=== PATIENT | female | born 1965 | race Caucasian/White ===

== ENCOUNTER 2024-03-09 06:07 | Inpatient (IN) | payer MEDICAID, OTHER ==
[2024-03-09 07:24] LABS: BASOPHILS ABSOLUTE AUTO 0.03 K/uL (0.00-0.10); BASOPHILS PERCENT AUTO 0.5 % (0.1-1.3); EOSINOPHILS ABSOLUTE AUTO 0.03 K/uL (0.00-0.40); EOSINOPHILS PERCENT AUTO 0.5 % (0.0-5.4); HEMATOCRIT 31.7 % (34.3-46.0); HEMOGLOBIN 10.6 g/dL (11.2-15.5); IMMATURE GRAN PERCENT AUTO 0.3 % (0.0-0.7); LYMPHOCYTES ABSOLUTE AUTO 1.46 K/uL (0.8-3.3); LYMPHOCYTES PERCENT AUTO 22.7 % (11.4-47.7); MEAN CORPUSCULAR HEMOGLOBIN 30.9 pg (31.6-35.5); MEAN CORPUSCULAR HGB CONC 33.4 g/dL (31.6-35.5); MEAN CORPUSCULAR VOLUME 92.4 fL (81.4-99.0); MONOCYTES ABSOLUTE AUTO 0.52 K/uL (0.20-0.90); MONOCYTES PERCENT AUTO 8.1 % (3.3-12.6); NEUTROPHILS ABSOLUTE AUTO 4.38 K/uL (1.0-7.6); NEUTROPHILS PERCENT AUTO 67.9 % (40.0-78.1); PLATELET COUNT,PLT 213 K/uL (130-375); RED BLOOD CELL COUNT 3.43 M/uL (3.77-5.24); WHITE BLOOD CELL COUNT,WBC 6.4 K/uL (3.2-11.0)
[2024-03-09] MEDS: Sodium Chloride 0.9% 1,000 ML IV SCH ×2 (07:37→23:27)
[2024-03-09 07:38] LABS: IMMATURE GRAN ABSOLUTE AUTO 0.02 K/uL (0.00-0.23)
[2024-03-09 07:41] LABS: PROTHROMBIN TIME 10.7 sec (9.2-10.6)
[2024-03-09 07:48] LABS: ALANINE AMINOTRANSFERASE,ALT 93 U/L (12-78); ALBUMIN 3.1 g/dL (3.4-5.0); ALKALINE PHOSPHATASE 64 U/L (46-116); ANION GAP 8.8 mmol/L (5.0-14.0); ASPARTATE AMNIOTRANSFERASE,AST 63 U/L (15-37); BILIRUBIN TOTAL 0.3 mg/dL (0.2-1.0); BLOOD UREA NITROGEN,BUN 20 mg/dL (7-18); CALCIUM 8.6 mg/dL (8.5-10.1); CARBON DIOXIDE,CO2 26 mmol/L (21-32); CHLORIDE,CL 108 mmol/L (100-108); CREATININE 0.7 mg/dL (0.6-1.0); ESTIMATED GFR 99 mL/min (>60); GLUCOSE RANDOM 124 mg/dL (74-106); POTASSIUM,K 3.8 mmol/L (3.6-5.2); PRO B-TYPE NATRIUR PEPT,BNPPRO 159 pg/mL (5-125); PROTEIN TOTAL,TP 6.2 g/dL (6.4-8.2); SODIUM,NA 143 mmol/L (140-148)
[2024-03-09 08:18] LABS: APPEARANCE,URINE CLOUDY (CLEAR); BILIRUBIN,URINE NEGATIVE (NEGATIVE); COLOR,URINE YELLOW (YELLOW); GLUCOSE,URINE NEGATIVE (NEGATIVE); KETONES,URINE TRACE mg/dL (NEGATIVE); LEUKOCYTE ESTERASE,URINE SMALL (NEGATIVE); NITRITE,URINE NEGATIVE (NEGATIVE); OCCULT BLOOD,URINE SMALL (NEGATIVE); PH,URINE 5.5 (5.0-8.0); PROTEIN,URINE NEGATIVE (NEGATIVE); UROBILINOGEN,URINE 0.2 EU/dL (0.2-1.0)
[2024-03-09 08:19] LABS: AMORPHOUS SEDIMENT,URINE NOT SEEN; BACTERIA,URINE MODERATE; EPITHELIAL CELLS,URINE FEW; MUCUS,URINE MODERATE
[2024-03-09] MEDS ORDERED: Magnesium Hydroxide 400 MG/5 ML Susp 30 ML Cup PO PRN (10:13)
[2024-03-09] MEDS ORDERED: Acetaminophen 500 MG Tab PO PRN (10:13)
[2024-03-09] MEDS ORDERED: Sennosides/Docusate Sodium 50-8.6 MG Tab PO PRN (10:13)
[2024-03-09] MEDS ORDERED: Ondansetron 4 MG/2 ML SDV IV PRN (10:13)
[2024-03-09] MEDS: Bisacodyl 5 MG Tab PO ONE (15:10)
[2024-03-09] MEDS: Polyethylene Glycol 3350 Powder 238 GM Bot PO ONE (15:10)
[2024-03-09] MEDS: Ondansetron 4 MG Tab.DIS PO PRN (17:57)
[2024-03-09] MEDS: Polyethylene Glycol 3350 Powder 119 GM Bottle PO ONE (18:02)
[2024-03-09] MEDS: Melatonin 3 MG Tab PO PRN (21:49)
[2024-03-10 04:47] LABS: HEMATOCRIT 27.7 % (34.3-46.0); HEMOGLOBIN 9.2 g/dL (11.2-15.5); MEAN CORPUSCULAR HGB CONC 33.2 g/dL (31.6-35.5); MEAN CORPUSCULAR VOLUME 93.3 fL (81.4-99.0); RED BLOOD CELL COUNT 2.97 M/uL (3.77-5.24); WHITE BLOOD CELL COUNT,WBC 5.9 K/uL (3.2-11.0)
[2024-03-10 05:03] LABS: CALCIUM 8.2 mg/dL (8.5-10.1); CREATININE 0.6 mg/dL (0.6-1.0); EST CRCL DRUG DOSING (CG) 86.1 mL/min
[2024-03-10] MEDS ORDERED: Propofol 200 MG/20 ML SDV ONE ×3 (09:29→10:46)
[2024-03-10] MEDS ORDERED: Midazolam 1 MG/ML 2 ML SDV ONE (09:29)
[2024-03-10] MEDS ORDERED: fentaNYL 50 MCG/ML SDV ONE (09:29)
[2024-03-10] MEDS ORDERED: fentaNYL 250 MCG/5 ML SDV ONE (10:45)
[2024-03-10] MEDS ORDERED: Ondansetron 4 MG/2 ML SDV ONE (10:46)
[2024-03-10] MEDS ORDERED: Rocuronium 50 MG/5 ML Vial ONE ×2 (10:46→12:23)
[2024-03-10] MEDS ORDERED: Dexamethasone 4 MG/ML SDV ONE (10:46)
[2024-03-10] MEDS ORDERED: Glycopyrrolate 0.2 MG/ML 5 ML MDV ONE (10:46)
[2024-03-10] MEDS ORDERED: Neostigmine Methylsulfate 10 MG/10 ML MDV ONE (10:46)
[2024-03-10] MEDS ORDERED: Sodium Chloride 0.9% 10 ML ONE (11:09)
[2024-03-10] MEDS ORDERED: cefOXitin 2 GM Vial ONE (11:09)
[2024-03-10] MEDS ORDERED: Lactated Ringers 1,000 ML ONE (11:45)
[2024-03-10] MEDS ORDERED: HYDROmorphone 0.5 MG/0.5 ML Syringe IVPUSH PRN (15:20)
[2024-03-10] MEDS: Piperacillin/Tazobactam/Dext 4.5 GM in Premix Bag 1 BAG IV ONE (15:49)
[2024-03-10] MEDS ORDERED: Piperacillin/Tazobactam 4.5 GM in Sodium Chloride 0.9% 100 ML IV ONE (16:00)
[2024-03-10] MEDS: Ketorolac 15 MG/ML SDV IVPUSH SCH (17:24)
[2024-03-10] MEDS ORDERED: Benzocaine/Cetylpyridinium/Menthol Lozenge MUCMEM PRN (19:38)
[2024-03-10] MEDS ORDERED: Piperacillin/Tazobactam 4.5 GM in Sodium Chloride 0.9% 100 ML IV SCH (20:00)
[2024-03-10] MEDS: Piperacillin/Tazobactam/Dext 4.5 GM in Premix Bag 1 BAG IV SCH (21:37)
[2024-03-10] MEDS: Phenol/Sodium Phenolate Spray 180 ML Bottle MUCMEM PRN (21:49)
[2024-03-10] MEDS: Acetaminophen Soln 650 MG/20.3 ML UD Cup PO SCH (22:00)
[2024-03-11 08:15] LABS: HEMATOCRIT 27.9 % (34.3-46.0); HEMOGLOBIN 9.2 g/dL (11.2-15.5); MEAN CORPUSCULAR HEMOGLOBIN 31.1 pg (31.6-35.5); MEAN CORPUSCULAR VOLUME 94.3 fL (81.4-99.0); RED BLOOD CELL COUNT 2.96 M/uL (3.77-5.24); WHITE BLOOD CELL COUNT,WBC 14.3 K/uL (3.2-11.0)
[2024-03-11 08:31] LABS: CREATININE 1.1 mg/dL (0.6-1.0); EST CRCL DRUG DOSING (CG) 46.96 mL/min
[2024-03-12 04:57] LABS: HEMATOCRIT 25.3 % (34.3-46.0); HEMOGLOBIN 8.3 g/dL (11.2-15.5); MEAN CORPUSCULAR HEMOGLOBIN 31.2 pg (31.6-35.5); MEAN CORPUSCULAR HGB CONC 32.8 g/dL (31.6-35.5); MEAN CORPUSCULAR VOLUME 95.1 fL (81.4-99.0); RED BLOOD CELL COUNT 2.66 M/uL (3.77-5.24); WHITE BLOOD CELL COUNT,WBC 11.6 K/uL (3.2-11.0)
[2024-03-12 05:16] LABS: CREATININE 0.9 mg/dL (0.6-1.0); EST CRCL DRUG DOSING (CG) 57.4 mL/min; MAGNESIUM 1.7 mg/dL (1.8-2.4); POTASSIUM,K 4.1 mmol/L (3.6-5.2)
[2024-03-12 05:21] LABS: ANION GAP 10.1 mmol/L (5.0-14.0)
[2024-03-12] MEDS: Magnesium Sulfate/Water Premix 2 GM in Premix Bag 1 BAG IV SCH (09:18)
[2024-03-12] MEDS: Sodium Chloride 0.9% 1,000 ML IV SCH (20:49)
[2024-03-13] MEDS: Acetaminophen 325 MG Tab PO PRN (16:46)
[2024-03-13] MEDS: Amoxicillin/Clavulanate K 875-125 MG Tab PO SCH (20:11)
[2024-03-13] MEDS: hydrOXYzine HCl 25 MG Tab PO PRN (21:00)
[2024-03-14 11:31] LABS: HEMATOCRIT 27.5 % (34.3-46.0); HEMOGLOBIN 9.1 g/dL (11.2-15.5); MEAN CORPUSCULAR HEMOGLOBIN 30.4 pg (31.6-35.5); MEAN CORPUSCULAR HGB CONC 33.1 g/dL (31.6-35.5); PLATELET COUNT,PLT 420 K/uL (130-375); RED BLOOD CELL COUNT 2.99 M/uL (3.77-5.24); WHITE BLOOD CELL COUNT,WBC 5.6 K/uL (3.2-11.0)
[2024-03-14 12:04] LABS: BAND ABSOLUTE MAN 0.17 K/uL; BAND PERCENT MAN 3 % (5-11); LYMPHOCYTES PERCENT MAN 9 % (24-44); MONOCYTES ABSOLUTE MAN 0.56 K/uL (0.20-0.90); MONOCYTES PERCENT MAN 10 % (2-6); NEUTROPHILS ABSOLUTE MAN 4.37 K/uL (1.0-7.6); SEG NEUTROPHILS PERCENT MAN 78 % (36-66)
[2024-03-14] MEDS: Simethicone 125 MG Tab.Chew PO PRN (12:08)
[2024-03-14] MEDS: Cyclobenzaprine 10 MG Tab PO SCH (13:56)
[2024-03-15 05:22] LABS: BASOPHILS PERCENT AUTO 0.1 % (0.1-1.3); EOSINOPHILS ABSOLUTE AUTO 0.12 K/uL (0.00-0.40); EOSINOPHILS PERCENT AUTO 1.6 % (0.0-5.4); HEMATOCRIT 24.7 % (34.3-46.0); HEMOGLOBIN 8.3 g/dL (11.2-15.5); IMMATURE GRAN ABSOLUTE AUTO 0.06 K/uL (0.00-0.23); IMMATURE GRAN PERCENT AUTO 0.8 % (0.0-0.7); LYMPHOCYTES ABSOLUTE AUTO 1.45 K/uL (0.8-3.3); LYMPHOCYTES PERCENT AUTO 18.8 % (11.4-47.7); MEAN CORPUSCULAR HEMOGLOBIN 30.4 pg (31.6-35.5); MEAN CORPUSCULAR HGB CONC 33.6 g/dL (31.6-35.5); MEAN CORPUSCULAR VOLUME 90.5 fL (81.4-99.0); MONOCYTES ABSOLUTE AUTO 0.87 K/uL (0.20-0.90); MONOCYTES PERCENT AUTO 11.3 % (3.3-12.6); NEUTROPHILS ABSOLUTE AUTO 5.22 K/uL (1.0-7.6); NEUTROPHILS PERCENT AUTO 67.4 % (40.0-78.1); PLATELET COUNT,PLT 412 K/uL (130-375); RED BLOOD CELL COUNT 2.73 M/uL (3.77-5.24); WHITE BLOOD CELL COUNT,WBC 7.7 K/uL (3.2-11.0)
[2024-03-15 05:33] LABS: BASOPHILS ABSOLUTE AUTO 0.01 K/uL (0.00-0.10)
== END 2024-03-15 14:30 | disposition home or self-care (01) | DRG 329 ==
LOC: JP.ED 06:07 → JP.MS 09:56 → OBSVTOIN 03-10 15:06
PROVIDERS: ADMIT Internal Medicine; ATTEND Hospitalist
PROC: 0DTN0ZZ Resection of Sigmoid Colon, Open Approach (ICD-10-PCS; principal; 2024-03-10 10:15)
PROC: 0DQV0ZZ Repair Mesentery, Open Approach (ICD-10-PCS; 2024-03-10 10:15)
PROC: 0DNN0ZZ Release Sigmoid Colon, Open Approach (ICD-10-PCS; 2024-03-10 10:15)
DX: K57.31 Diverticulosis of large intestine without perforation or abscess with bleeding (principal); K63.1 Perforation of intestine (nontraumatic); D62 Acute posthemorrhagic anemia; Z68.41 Body mass index [BMI] 40.0-44.9, adult; K62.5 Hemorrhage of anus and rectum; Z96.649 Presence of unspecified artificial hip joint; F15.90 Other stimulant use, unspecified, uncomplicated; E66.9 Obesity, unspecified
CPT/HCPCS: 36415; 74018; 74018-26; 80048; 80053; 81001; 82270; 82565; 83605; 83735; 83880; 85018; 85025; 85027; 85610; 86850; 86900; 86901; 88307; 96360; 96361; 99222; 99232; 99238; 99285; 99285-25; A9270-GY; G0378; J0694; J1100; J1596; J1885; J2250; J2405; J2543; J2704; J2710; J3010; J3475; J3490; J7030; J7120; Q0162

== ENCOUNTER 2024-04-10 16:05 | Emergency (ER) | payer OTHER ==
[2024-04-10 17:38] LABS: BASOPHILS ABSOLUTE AUTO 0.03 K/uL (0.00-0.10); BASOPHILS PERCENT AUTO 0.5 % (0.1-1.3); EOSINOPHILS PERCENT AUTO 0.2 % (0.0-5.4); HEMATOCRIT 19.2 % (34.3-46.0); IMMATURE GRAN ABSOLUTE AUTO 0.04 K/uL (0.00-0.23); IMMATURE GRAN PERCENT AUTO 0.6 % (0.0-0.7); LYMPHOCYTES ABSOLUTE AUTO 1.44 K/uL (0.8-3.3); LYMPHOCYTES PERCENT AUTO 21.8 % (11.4-47.7); MEAN CORPUSCULAR HEMOGLOBIN 27.7 pg (31.6-35.5); MEAN CORPUSCULAR HGB CONC 33.3 g/dL (31.6-35.5); MEAN CORPUSCULAR VOLUME 83.1 fL (81.4-99.0); MONOCYTES ABSOLUTE AUTO 0.45 K/uL (0.20-0.90); MONOCYTES PERCENT AUTO 6.8 % (3.3-12.6); NEUTROPHILS ABSOLUTE AUTO 4.63 K/uL (1.0-7.6); NEUTROPHILS PERCENT AUTO 70.1 % (40.0-78.1); PLATELET COUNT,PLT 666 K/uL (130-375); RED BLOOD CELL COUNT 2.31 M/uL (3.77-5.24); WHITE BLOOD CELL COUNT,WBC 6.6 K/uL (3.2-11.0)
[2024-04-10 17:48] LABS: EOSINOPHILS ABSOLUTE AUTO 0.01 K/uL (0.00-0.40); HEMOGLOBIN 6.4 g/dL (11.2-15.5)
[2024-04-10 18:07] LABS: A/G RATIO 0.3 (1.2-2.2); ALANINE AMINOTRANSFERASE,ALT 14 U/L (12-78); ALBUMIN 1.5 g/dL (3.4-5.0); ALKALINE PHOSPHATASE 101 U/L (46-116); ASPARTATE AMNIOTRANSFERASE,AST 23 U/L (15-37); BILIRUBIN TOTAL 0.6 mg/dL (0.2-1.0); BLOOD UREA NITROGEN,BUN 32 mg/dL (7-18); CALCIUM 8.1 mg/dL (8.5-10.1); CARBON DIOXIDE,CO2 25 mmol/L (21-32); CHLORIDE,CL 105 mmol/L (100-108); CREATININE 1.2 mg/dL (0.6-1.0); EST CRCL DRUG DOSING (CG) 43.05 mL/min; ESTIMATED GFR 52 mL/min (>60); GLUCOSE RANDOM 105 mg/dL (74-106); PRO B-TYPE NATRIUR PEPT,BNPPRO 2430 pg/mL (5-125); PROTEIN TOTAL,TP 6.6 g/dL (6.4-8.2); SODIUM,NA 143 mmol/L (140-148)
[2024-04-10 18:10] LABS: ANION GAP 15.4 mmol/L (5.0-14.0); POTASSIUM,K 2.4 mmol/L (3.6-5.2)
[2024-04-10] MEDS: Iopamidol 612 MG/ML 100 ML Bottle IV SCH (18:25)
[2024-04-10] MEDS: Sodium Chloride 0.9% 80 ML IV SCH (18:25)
[2024-04-10] MEDS: Potassium Chloride 20 MEQ Tab.ER PO ONE (19:06)
[2024-04-10] MEDS: Potassium Chloride 20 MEQ in Premix Bag 1 BAG IV ONE (19:07)
[2024-04-10] MEDS: Piperacillin/Tazobactam 4.5 GM in Sodium Chloride 0.9% 100 ML IV SCH (23:31)
[2024-04-11] MEDS: HYDROmorphone 0.5 MG/0.5 ML Syringe IVPUSH ONE ×3 (01:03→16:54)
[2024-04-11] MEDS: diphenhydrAMINE 50 MG/ML SDV IVPUSH PRN (01:07)
[2024-04-11 07:13] LABS: BASOPHILS ABSOLUTE AUTO 0.03 K/uL (0.00-0.10); BASOPHILS PERCENT AUTO 0.5 % (0.1-1.3); EOSINOPHILS ABSOLUTE AUTO 0.04 K/uL (0.00-0.40); EOSINOPHILS PERCENT AUTO 0.7 % (0.0-5.4); HEMATOCRIT 27.4 % (34.3-46.0); HEMOGLOBIN 9.3 g/dL (11.2-15.5); IMMATURE GRAN ABSOLUTE AUTO 0.06 K/uL (0.00-0.23); LYMPHOCYTES ABSOLUTE AUTO 1.56 K/uL (0.8-3.3); LYMPHOCYTES PERCENT AUTO 27.3 % (11.4-47.7); MEAN CORPUSCULAR HEMOGLOBIN 28.9 pg (31.6-35.5); MEAN CORPUSCULAR HGB CONC 33.9 g/dL (31.6-35.5); MEAN CORPUSCULAR VOLUME 85.1 fL (81.4-99.0); MONOCYTES ABSOLUTE AUTO 0.74 K/uL (0.20-0.90); MONOCYTES PERCENT AUTO 12.9 % (3.3-12.6); NEUTROPHILS ABSOLUTE AUTO 3.29 K/uL (1.0-7.6); NEUTROPHILS PERCENT AUTO 57.6 % (40.0-78.1); PLATELET COUNT,PLT 552 K/uL (130-375); RED BLOOD CELL COUNT 3.22 M/uL (3.77-5.24); WHITE BLOOD CELL COUNT,WBC 5.7 K/uL (3.2-11.0)
[2024-04-11 07:31] LABS: ANION GAP 16.1 mmol/L (5.0-14.0); CALCIUM 8.4 mg/dL (8.5-10.1); EST CRCL DRUG DOSING (CG) 51.66 mL/min; POTASSIUM,K 3.1 mmol/L (3.6-5.2)
[2024-04-11] MEDS ORDERED: Potassium Chloride 20 MEQ in Premix Bag 1 BAG IV ONE (08:10)
[2024-04-11] MEDS: Piperacillin/Tazobactam/Dext 4.5 GM in Premix Bag 1 BAG IV SCH (09:17)
[2024-04-11] MEDS: Potassium Chloride 10 MEQ in Premix Bag 1 BAG IV SCH (09:22)
[2024-04-11] MEDS: Sodium Chloride 0.9% 1,000 ML IV SCH (09:22)
[2024-04-11] MEDS: LORazepam 2 MG/ML SDV IVPUSH ONE (09:50)
[2024-04-11 14:09] LABS: BASOPHILS ABSOLUTE AUTO 0.03 K/uL (0.00-0.10); BASOPHILS PERCENT AUTO 0.5 % (0.1-1.3); EOSINOPHILS ABSOLUTE AUTO 0.04 K/uL (0.00-0.40); EOSINOPHILS PERCENT AUTO 0.7 % (0.0-5.4); HEMATOCRIT 27.6 % (34.3-46.0); HEMOGLOBIN 9.3 g/dL (11.2-15.5); IMMATURE GRAN ABSOLUTE AUTO 0.05 K/uL (0.00-0.23); IMMATURE GRAN PERCENT AUTO 0.9 % (0.0-0.7); LYMPHOCYTES ABSOLUTE AUTO 1.67 K/uL (0.8-3.3); LYMPHOCYTES PERCENT AUTO 29.2 % (11.4-47.7); MEAN CORPUSCULAR HEMOGLOBIN 29.1 pg (31.6-35.5); MEAN CORPUSCULAR HGB CONC 33.7 g/dL (31.6-35.5); MEAN CORPUSCULAR VOLUME 86.3 fL (81.4-99.0); MONOCYTES ABSOLUTE AUTO 0.83 K/uL (0.20-0.90); MONOCYTES PERCENT AUTO 14.5 % (3.3-12.6); NEUTROPHILS PERCENT AUTO 54.2 % (40.0-78.1); PLATELET COUNT,PLT 528 K/uL (130-375); WHITE BLOOD CELL COUNT,WBC 5.7 K/uL (3.2-11.0)
[2024-04-11 14:29] LABS: A/G RATIO 0.3 (1.2-2.2); ALANINE AMINOTRANSFERASE,ALT 16 U/L (12-78); ALBUMIN 1.5 g/dL (3.4-5.0); ALKALINE PHOSPHATASE 98 U/L (46-116); ANION GAP 13.6 mmol/L (5.0-14.0); ASPARTATE AMNIOTRANSFERASE,AST 27 U/L (15-37); BILIRUBIN TOTAL 0.8 mg/dL (0.2-1.0); BLOOD UREA NITROGEN,BUN 23 mg/dL (7-18); CALCIUM 8.2 mg/dL (8.5-10.1); CARBON DIOXIDE,CO2 26 mmol/L (21-32); CHLORIDE,CL 111 mmol/L (100-108); CREATININE 0.9 mg/dL (0.6-1.0); ESTIMATED GFR 73 mL/min (>60); GLUCOSE RANDOM 81 mg/dL (74-106); POTASSIUM,K 3.6 mmol/L (3.6-5.2); PROTEIN TOTAL,TP 6.7 g/dL (6.4-8.2); SODIUM,NA 147 mmol/L (140-148)
== END 2024-04-11 17:00 ==
LOC: JP.ED 16:05
DX: D64.9 Anemia, unspecified (principal); K65.1 Peritoneal abscess; Z79.899 Other long term (current) drug therapy
CPT/HCPCS: 36415; 36430; 71260; 74177; 80048; 80053; 83605; 83880; 85025; 86140; 86850; 86900; 86901; 86920; 86922; 87040; 96365; 96366; 96367; 96368; 96375; 96376; 99285; A9270; J1200; J2060; J2543; J3480; J7030; P9016; Q9967